=== PATIENT | female | born 1985 | race Caucasian/White ===

== ENCOUNTER 2017-03-12 20:36 | Emergency (ER) | payer BC ==
[2017-03-12 20:57] VITALS: BP 89/52
[2017-03-12] MEDS ORDERED: Sodium Chloride 0.9% 10 ML Syringe FLUSH PRN (21:41)
[2017-03-12] MEDS ORDERED: fentaNYL 100 MCG/2 ML SDV IVPUSH ONE (21:41)
[2017-03-12] MEDS ORDERED: Sodium Chloride 0.9% 1,000 ML IV ONE (21:41)
--- NOTE | 2017-03-12 23:33 | EDM.PDOC ---
ED HPI GENERAL MEDICAL PROBLEM - General Chief Complaint: Fever Stated Complaint: LOW GRADE FEVER,CANCER PT Time Seen by Provider: 03/12/17 21:25 Source of Information: Reports: Patient History Limitations: Reports: No Limitations - History of Present Illness INITIAL COMMENTS - FREE TEXT/NARRATIVE: 31 year old female presents for evaluation and treatment of a low grade fever. Patient has a history of melanoma and is currently receiving chemo. Reports she developed a fevers of 100.2 around 18:00 today. Reports over the last few days she has appreciated nausea, vomiting, decreased appetite, heart palpitations and dizziness. Denies any cough, dysuria, back pain, abdominal pain or diarrhea. Additionally patient reports left hip pain. Reports joint pains associated with her chemo. No erythema to the joint. Able to walk. Additionally , she has family members who have been ill with cold symptoms. She did take a norco 10-325 today for the left hip pain. Patient feels her symptoms may be due to dehydration. Reports she often feels dizzy, and has heart palpitations with dehydration. She was at [place] on Monday for dehydration. She received fluids. Last WBC Monday was 3.0. Patient has been placed in reverse isolation upon arrival to the ER. Patient sees Sabrina Onofre for local care and [facility] for her melanoma. Diagnosed with melanoma about one year ago. She has been receiving treatment for the last year. Patient has a history of frequent UTIs and pyelonephritis. Does not feel like she has either one of these at this time. Treatments NEWSWRITER: Reports: Other (see below) Other Treatments NEWSWRITER: hydrocodone Bilateral Leg Pain Score (Numeric/FACES): 3 - Related Data Allergies Allergy/AdvReac Type Severity Reaction Status Date / Time hydromorphone [From Dilaudid] AdvReac Intermediate Nausea and Verified 09/04/16 17:10 Vomiting Home Meds: Home Meds LORazepam 1 mg PO Q8H PRN 07/25/15 [History] Ascorbic Acid [Vitamin C] 1,000 mg PO TID 08/01/16 [History] Cyanocobalamin (Vitamin B-12) [B-12] 1,000 mcg PO DAILY 08/01/16 [History] Cyclobenzaprine [Flexeril] 10 - 20 mg PO Q4H PRN 08/01/16 [History] DULoxetine [Cymbalta] 90 mg PO DAILY 08/01/16 [History] Hydrocodone/Acetaminophen [[place] 5-325] 1 tab PO Q6H PRN 08/01/16 [History] Magnesium Amino Acid Chelate [Magnesium] 200 mg PO DAILY 08/01/16 [History] Ondansetron [Zofran ODT] 8 mg PO Q6HR PRN 08/01/16 [History] Acetaminophen [Tylenol] 650 mg PO Q4H PRN #0 tablet 08/04/16 [Rx] Ibuprofen [IJD: Ibuprofen] 800 mg PO Q12H PRN #0 tablet 08/04/16 [Rx] Levofloxacin [Levaquin] 500 mg PO Q24H #6 tablet 09/04/16 [Rx] Ondansetron [Zofran ODT] 4 mg PO Q8H PRN #20 tab.dis 09/04/16 [Rx] Past Medical History - Past Health History Medical/Surgical History: Denies Medical/Surgical History Cardiovascular History: Reports: Other (See Below) Other Cardiovascular History: palpitations related to some prior meds Gastrointestinal History: Reports: None Genitourinary History: Reports: Pyelonephritis, Renal Calculus, UTI, Recurrent Other Genitourinary History: current diagnosis of pylonephritis 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 3 c sections Musculoskeletal History: Reports: Other (See Below) Other Musculoskeletal History: left hip pain Psychiatric History: Reports: Depression Oncologic (Cancer) History: Reports: Malignant Melanoma Dermatologic History: Reports: Melanoma Other Dermatologic History: malignant melanoma diagnosis middle of February 2016 - Past Surgical History GI Surgical History: Reports: Cholecystectomy Female Surgical History: Reports: Section, Tubal Ligation Social & Family History - Family History Family Medical History: Noncontributory - Tobacco Use Smoking Status *Q: Former Smoker Years of Tobacco use: 4 Used Tobacco, but Quit: Yes Month Tobacco Last Used: 12 Second Hand Smoke Exposure: Yes - Caffeine Use Caffeine Use: Reports: Coffee Other Caffeine Use: 4/day Caffeine Use Comment: 4 cups per day - Recreational Drug Use Recreational Drug Use: No ED ROS GENERAL - Review of Systems Review Of Systems: See Below Constitutional: Reports: Fever (reports a fever of 100.2), Decreased Appetite HEENT: Denies: Ear Pain, Sinus Problem, Throat Pain Respiratory: Denies: Shortness of Breath, Cough Cardiovascular: Reports: Palpitations. Denies: Chest Pain GI/Abdominal: Reports: Nausea, Vomiting ( and Monday now resolved). Denies: Abdominal Pain, Diarrhea : Denies: Dysuria, Flank Pain Musculoskeletal: Reports: Other (left hip pain). Denies: Back Pain Neurological: Reports: Dizziness ED EXAM, GENERAL - Physical Exam Exam: See Below Exam Limited By: No Limitations General Appearance: Alert, WD/WN, No Apparent Distress, Thin Eye Exam: Bilateral Eye: Normal Inspection Ears: Normal External Exam, Normal Canal, Hearing Grossly Normal, Normal TMs Nose: Normal Inspection Throat/Mouth: Normal Inspection, Normal Lips, Normal Oropharynx, Normal Voice, No Airway Compromise Neck: Normal Inspection Respiratory/Chest: No Respiratory Distress, Lungs Clear, Normal Breath Sounds Cardiovascular: Normal Peripheral Pulses, Regular Rate, Rhythm, No Murmur GI/Abdominal: Normal Bowel Sounds, Soft, Non-Tender Neurological: Alert, Oriented, Normal Cognition Psychiatric: Normal Affect, Normal Mood Skin Exam: Warm, Dry, Normal Color Course - Vital Signs Last Recorded V/S: Last Vital Signs Temp 37.2 C 03/13/17 00:05 Pulse 59 L 03/12/17 20:55 Resp 20 03/12/17 20:55 BP 89/52 L 03/12/17 20:55 Pulse Ox 98 03/12/17 20:55 - Orders/Labs/Meds Labs: Laboratory Tests 03/12/17 03/12/17 03/12/17 Range/Units 23:00 23:00 23:00 WBC 5.21 (3.98-10.04) K/mm3 RBC 4.47 (3.98-5.22) M/mm3 Hgb 12.9 (11.2-15.7) gm/L Hct 39.1 (34.1-44.9) % MCV 87.5 (79.4-94.8) fl MCH 28.9 (25.6-32.2) pg MCHC 33.0 (32.2-35.5) g/dl RDW Std Deviation 40.1 (36.4-46.3) fL Plt Count 171 L (182-369) K/mm3 MPV 11.1 (9.4-12.3) fl Neutrophils % (Manual) 84 H (40-60) % Band Neutrophils % 2 (0-10) % Lymphocytes % (Manual) 7 L (20-40) % Atypical Lymphs % 0 % Monocytes % (Manual) 4 (2-10) % Eosinophils % (Manual) 2 (0.7-5.8) % Basophils % (Manual) 1 (0.1-1.2) Platelet Estimate Adequate Plt Morphology Comment Normal RBC Morph Comment Normal Sodium 143 (136-145) mEq/L Potassium 4.1 (3.5-5.1) mEq/L Chloride 104 (98-107) mEq/L Carbon Dioxide 32 (21-32) mEq/L Anion Gap 11.1 (5-15) BUN 29 H (7-18) mg/dL Creatinine 0.9 (0.55-1.02) mg/dL Est Cr Clr Drug Dosing 68.76 mL/min Estimated GFR (MDRD) > 60 (>60) mL/min BUN/Creatinine Ratio 32.2 H (14-18) Glucose 95 (74-106) mg/dL Calcium 9.5 (8.5-10.1) mg/dL Total Bilirubin 0.4 (0.2-1.0) mg/dL AST 21 (15-37) U/L ALT 32 (14-59) U/L Alkaline Phosphatase 65 (46-116) U/L C-Reactive Protein < 0.2 (<1.0) mg/dL Total Protein 7.9 (6.4-8.2) g/dl Albumin 4.2 (3.4-5.0) g/dl Globulin 3.7 gm/dL Albumin/Globulin Ratio 1.1 (1-2) Urine Color Yellow (Yellow) Urine Appearance Clear (Clear) Urine pH 7.5 (5.0-8.0) Ur Specific [place] 1.020 (1.005-1.030) Urine Protein Negative (Negative) Urine Glucose (UA) Negative (Negative) Urine Ketones Negative (Negative) Urine Occult Blood Negative (Negative) Urine Nitrite Negative (Negative) Urine Bilirubin Negative (Negative) Urine Urobilinogen 0.2 (0.2-1.0) Ur Leukocyte Esterase Negative (Negative) Urine RBC 0-5 (0-5) /hpf Urine WBC 0-5 (0-5) /hpf Ur Epithelial Cells 0-5 (0-5) /hpf Urine Bacteria Few (FEW) /hpf Urine Mucus Not seen (FEW) /hpf Meds: Medications Discontinued Medications Generic Name Dose Route Start Last Admin Trade Name Alaina PRN Reason Stop Dose Admin Fentanyl 50 mcg 03/12/17 21:41 03/12/17 22:55 Sublimaze IVPUSH 03/12/17 21:42 50 mcg ONETIME ONE Administration Sodium Chloride 1,000 mls @ 999 mls/hr 03/12/17 21:41 03/12/17 22:55 Normal Saline IV 03/12/17 22:41 999 mls/hr ONETIME ONE Administration Sodium Chloride 10 ml 03/12/17 21:41 Saline Flush FLUSH ASDIRECTED PRN Keep Vein Open - Re-Assessments/Exams Free Text/Narrative Re-Assessment/Exam: 03/12/17 21:42 Afebrile here in ER at 984 F, HR is 59. Hypotensive at 89/52 but thought to be baseline for her. Plan will be to obtain labs to rule out infection. 03/12/17 23:53 Labs returned. wbc within normal limits at 5.21 with 2% bands, hgb is 12.9 and plts are 171 CRP is within normal limits at <0.2 sodium is 143, potassium is 4.1 and chloride is 104. Anion gap is 11.1. creatinine is 0.9. glucose is 95. UA has no leuks, nitrites, glucose, protein or ketones. She has received fentanyl for the pain and 1 l fluids. Feels improved at this point. Since the patient does not have a cough, she is afebrile and not tachycardic I see no reason for a chest xray or blood cultures. Patient agrees with this. I will discharge her home with close follow-up she is to return immediately if her symptoms change or worsen. Discharge instructions as documented. Departure - Departure Time of Disposition: 23:52 Disposition: Home, Self-Care 01 Condition: Good Clinical Impression: Temperature elevation, Fatigue - Discharge Information Instructions: Fatigue, Fever, Adult, [id number] Referrals: Beatriz Onofre, [employer] LANCE MODEL [Primary Care Provider] - Forms: ED Department Discharge Additional Instructions: make sure you are drinking plenty of fluids. Continue with your current plan of care. Follow up with her family practice provider Monday as planned and your oncologist if needed. Please return to the ER if your symptoms change or worsen.
== END 2017-03-13 00:06 | disposition home or self-care (01) ==
LOC: JD.ED 20:36
DX: R50.9 Fever, unspecified (principal); R53.83 Other fatigue; F32.9 Major depressive disorder, single episode, unspecified; Z88.8 Allergy status to other drugs, medicaments and biological substances; Z79.899 Other long term (current) drug therapy; Z90.49 Acquired absence of other specified parts of digestive tract; Z98.51 Tubal ligation status; Z87.891 Personal history of nicotine dependence
CPT/HCPCS: 36415; 80053; 81001; 85025; 86140; 96361; 96374; 99284; J3010; J7040

== ENCOUNTER 2019-09-14 07:45 | Emergency (ER) | payer BC ==
[2019-09-14 08:04] VITALS: BP 112/65; PULSE 80
[2019-09-14] MEDS ORDERED: Sodium Chloride 0.9% 10 ML Syringe FLUSH PRN (08:19)
[2019-09-14] MEDS ORDERED: Sodium Chloride 0.9% 1,000 ML IV SCH (08:30)
--- NOTE | 2019-09-14 08:32 | EDM.PDOC ---
ED HPI GENERAL MEDICAL PROBLEM - General Chief Complaint: Flank Pain Stated Complaint: FEVER/COUGH AND BODY ACHES,KIDNEY ISSUES Time Seen by Provider: 09/14/19 07:59 Source of Information: Reports: Patient History Limitations: Reports: No Limitations - History of Present Illness INITIAL COMMENTS - FREE TEXT/NARRATIVE: Patient is a 33-year-old female who presents with complaints of fever, chills, body aches, sore throat, headache, shortness of breath and cough that started yesterday. Patient also states that last night she began having right sided flank pain. She has a history of kidney stones and pyelonephritis and states that her flank pain feels similar to either of these diagnoses she has had in the past. The pain to the right flank waxes and wane. She denies any dysuria, frequency, nausea, vomiting, or diarrhea. Patient did not receive a flu vaccination this year. She took 800 mg of ibuprofen around 7:15 this morning and states that it did improve her symptoms. She is afebrile at this time. Patient is currently on her menstrual cycle. Of note, patient does have a history of malignant melanoma in remission. She states that she does have a nodule in one of her lungs that she is supposed to follow-up on. Treatments RARE/ENDANGERED SPECIES SPECIALIST: Reports: Acetaminophen, NSAIDS Right Flank Pain Score (Numeric/FACES): 5 - Related Data Allergies Allergy/AdvReac Type Severity Reaction Status Date / Time silver Allergy Redness Verified 09/14/19 08:05 [From [employer]eg[employer] Mesh] Home Meds: Home Meds LORazepam 1 mg PO Q8H PRN 07/25/15 [History] Ascorbic Acid [Vitamin C] 1,000 mg PO TID 08/01/16 [History] Cyanocobalamin (Vitamin B-12) [B-12] 1,000 mcg PO DAILY 08/01/16 [History] Cyclobenzaprine [Flexeril] 10 - 20 mg PO Q4H PRN 08/01/16 [History] DULoxetine [Cymbalta] 90 mg PO DAILY 08/01/16 [History] Hydrocodone/Acetaminophen [[place] 5-325] 1 tab PO Q6H PRN 08/01/16 [History] Magnesium Amino Acid Chelate [Magnesium] 200 mg PO DAILY 08/01/16 [History] Ondansetron [Zofran ODT] 8 mg PO Q6HR PRN 08/01/16 [History] Acetaminophen [Tylenol] 650 mg PO Q4H PRN #0 tablet 08/04/16 [Rx] Ibuprofen [IJD: Ibuprofen] 800 mg PO Q12H PRN #0 tablet 08/04/16 [Rx] Levofloxacin [Levaquin] 500 mg PO Q24H #6 tablet 09/04/16 [Rx] Ondansetron [Zofran ODT] 4 mg PO Q8H PRN #20 tab.dis 09/04/16 [Rx] Past Medical History - Past Health History Medical/Surgical History: Denies Medical/Surgical History Cardiovascular History: Reports: Other (See Below) Other Cardiovascular History: palpitations related to some prior meds Gastrointestinal History: Reports: None Genitourinary History: Reports: Pyelonephritis, Renal Calculus, UTI, Recurrent Other Genitourinary History: current diagnosis of pylonephritis RUG WEAVER History: Reports: Other (See Below) Other RUG WEAVER History: uterine polyp removed. 3 c sections Musculoskeletal History: Reports: Other (See Below) Other Musculoskeletal History: left hip pain Psychiatric History: Reports: Depression Oncologic (Cancer) History: Reports: Malignant Melanoma Dermatologic History: Reports: Melanoma Other Dermatologic History: malignant melanoma diagnosis middle of February 2016 - Past Surgical History GI Surgical History: Reports: Cholecystectomy Female Surgical History: Reports: Section, Tubal Ligation Social & Family History - Family History Family Medical History: Noncontributory - Tobacco Use Smoking Status *Q: Never Smoker - Caffeine Use Caffeine Use: Reports: Coffee Other Caffeine Use: 4/day Caffeine Use Comment: 4 cups per day - Recreational Drug Use Recreational Drug Use: No ED ROS GENERAL - Review of Systems Review Of Systems: Comprehensive ROS is negative, except as noted in HPI. ED EXAM, GENERAL - Physical Exam Exam: See Below Exam Limited By: No Limitations General Appearance: Alert, WD/WN, No Apparent Distress Throat/Mouth: Normal Inspection, Normal Lips, Normal Teeth, Normal Gums, Normal Oropharynx, Normal Voice, No Airway Compromise Head: Atraumatic, Normocephalic Neck: Normal Inspection, Supple, Non-Tender, Full Range of Motion Respiratory/Chest: No Respiratory Distress, Normal Breath Sounds, No Accessory Muscle Use, Chest Non-Tender, Wheezing (faint expiratory) Cardiovascular: Normal Peripheral Pulses, Regular Rate, Rhythm, No Edema, No Gallop, No JVD, No Murmur, No Rub GI/Abdominal: Normal Bowel Sounds, Soft, Non-Tender, No Organomegaly, No Distention, No Abnormal Bruit, No Mass Back Exam: Normal Inspection, CVA Tenderness (R) Neurological: Alert, Oriented, CN II-XII Intact, Normal Cognition, Normal Gait, Normal Reflexes, No Motor/Sensory Deficits Psychiatric: Normal Affect, Normal Mood Skin Exam: Warm, Dry, Intact, Normal Color, No Rash Course - Vital Signs Last Recorded V/S: Last Vital Signs Temp 98.5 F 09/14/19 07:58 Pulse 80 09/14/19 07:58 Resp 16 09/14/19 07:58 BP 112/65 09/14/19 07:58 Pulse Ox 92 L 09/14/19 07:58 - Orders/Labs/Meds Orders: Active Orders 24 hr Category Date Time Status Peripheral IV Care [RC] . DIRECTED Care 09/14/19 08:20 Active Chest 2V [CR] Stat Exams 09/14/19 08:37 Taken Sodium Chloride 0.9% [Normal Saline] 1,000 ml Med 09/14/19 08:30 Active IV ASDIRECTED Sodium Chloride 0.9% [Saline Flush] Med 09/14/19 08:19 Active 10 ml FLUSH ASDIRECTED PRN Peripheral IV Insertion Adult [OM.PC] Stat Oth 09/14/19 08:19 Ordered Medication Orders Sodium Chloride (Normal Saline) 1,000 mls @ 999 mls/hr IV ASDIRECTED KAUSHAL Last Admin: 09/14/19 08:38 Dose: 150 mls/hr Sodium Chloride (Saline Flush) 10 ml FLUSH ASDIRECTED PRN PRN Reason: Keep Vein Open Last Admin: 09/14/19 08:38 Dose: 10 ml Labs: Laboratory Tests 09/14/19 09/14/19 09/14/19 Range/Units 08:27 08:27 08:27 WBC 5.28 (3.98-10.04) K/mm3 RBC 4.52 (3.98-5.22) M/mm3 Hgb 13.9 (11.2-15.7) gm/dl Hct 41.9 (34.1-44.9) % MCV 92.7 (79.4-94.8) fl MCH 30.8 (25.6-32.2) pg MCHC 33.2 (32.2-35.5) g/dl RDW Std Deviation 40.6 (36.4-46.3) fL Plt Count 160 L D (182-369) K/mm3 MPV 10.8 (9.4-12.3) fl Neut % (Auto) 85.2 H (34.0-71.1) % Lymph % (Auto) 5.1 L (19.3-51.7) % [place] % (Auto) 8.5 (4.7-12.5) % Eos % (Auto) 0.8 (0.7-5.8) Baso % (Auto) 0.2 (0.1-1.2) % Neut # (Auto) 4.50 (1.56-6.13) K/mm3 Lymph # (Auto) 0.27 L (1.18-3.74) K/mm3 [place] # (Auto) 0.45 H (0.24-0.36) K/mm3 Eos # (Auto) 0.04 (0.04-0.36) K/mm3 Baso # (Auto) 0.01 (0.01-0.08) K/mm3 Manual Slide Review Abnormal smear Sodium 138 (136-145) mEq/L Potassium 4.0 (3.5-5.1) mEq/L Chloride 102 (98-107) mEq/L Carbon Dioxide 22 (21-32) mEq/L Anion Gap 18.0 H (5-15) BUN 10 (7-18) mg/dL Creatinine 1.0 (0.55-1.02) mg/dL Est Cr Clr Drug Dosing 69.16 mL/min Estimated GFR (MDRD) > 60 (>60) mL/min BUN/Creatinine Ratio 10.0 L (14-18) Glucose 112 H (74-106) mg/dL Calcium 8.3 L (8.5-10.1) mg/dL Total Bilirubin 0.3 (0.2-1.0) mg/dL AST 18 (15-37) U/L ALT 33 (14-59) U/L Alkaline Phosphatase 65 (46-116) U/L C-Reactive Protein 0.9 (<1.0) mg/dL Total Protein 7.0 (6.4-8.2) g/dl Albumin 3.7 (3.4-5.0) g/dl Globulin 3.3 gm/dL Albumin/Globulin Ratio 1.1 (1-2) Urine Color Yellow (Yellow) Urine Appearance Slt cloudy H (Clear) Urine pH 7.5 (5.0-8.0) Ur Specific [place] 1.025 (1.005-1.030) Urine Protein Negative (Negative) Urine Glucose (UA) Negative (Negative) Urine Ketones Negative (Negative) Urine Occult Blood Trace-intact H (Negative) Urine Nitrite Negative (Negative) Urine Bilirubin Negative (Negative) Urine Urobilinogen 0.2 (0.2-1.0) Ur Leukocyte Esterase Negative (Negative) Urine RBC 5-10 H (0-5) /hpf Urine WBC 0-5 (0-5) /hpf Ur Squamous Epith Cells 0-5 (0-5) /hpf Amorphous Sediment Many H (NOT SEEN) /hpf Urine Bacteria Few (FEW) /hpf Urine Mucus Few (FEW) /hpf Meds: Medications Generic Name Dose Route Start Last Admin Trade Name Freq PRN Reason Stop Dose Admin Sodium Chloride 1,000 mls @ 999 mls/hr 09/14/19 08:30 09/14/19 08:38 Normal Saline IV 150 mls/hr ASDIRECTED KAUSHAL Administration Sodium Chloride 10 ml 09/14/19 08:19 09/14/19 08:38 Saline Flush FLUSH 10 ml ASDIRECTED PRN Administration Keep Vein Open - Re-Assessments/Exams Free Text/Narrative Re-Assessment/Exam: 09/14/19 09:17 Urinalysis was negative for any infection, however was positive for trace occult blood and 5-10 rbc's. Patient did change her tampon and cleaned very well prior to the sample to prevent cross contamination from her menstrual period. She was positive for influenza B. I have ordered a abdomen pelvis CT without contrast to look for kidney stone. 09/14/19 10:36 CT scan did show 2-2.5 mm nonobstructing stones within the mid to upper right kidney, however there are no stones noted within the ureters. CT also showed a low density lesion within the posterior right lobe of the liver measuring 1.4 cm. Does not appear cystic but is most likely benign as there are no additional abnormalities seen within the liver. Patient also has mild increased stool within the colon which is likely the source of her right flank pain. I discussed the CT findings with the patient and, given her history of malignant melanoma, I did recommend that she follow up with her primary care provider to discuss the findings of the CT. She stated that she also has a follow-up appointment scheduled with her oncologist at [facility] [place] in October. I will provide her with a copy of the CT report for her to take with that appointment. I recommended that she call Monday to schedule a follow-up appointment with her primary care provider, Randa Sawyer. Discharge instructions as noted. Departure - Departure Time of Disposition: 10:42 Disposition: Home, Self-Care 01 Condition: Fair Clinical Impression: Influenza B Constipation Qualifiers: Constipation type: unspecified constipation type Qualified Code(s): K59.00 - Constipation, unspecified - Discharge Information *PRESCRIPTION DRUG MONITORING PROGRAM REVIEWED*: No *COPY OF PRESCRIPTION DRUG MONITORING REPORT IN PATIENT REX: No Instructions: Influenza, Adult, [id number], Constipation, Adult, [id number] Referrals: Randa Sawyer PA-C [Primary Care Provider] - Forms: ED Department Discharge Additional Instructions: You were seen in the emergency department today for fever, chills, cough, sore throat, and right flank pain. You were positive for influenza B. Your CT scan was negative for any kidney stones in your ureters. As we discussed, your CT scan did show a 1.4 cm low density lesion in the posterior right lobe of your liver. The radiologist notes that this is most likely benign, however given your history of malignant melanoma, I feel it is necessary for you to follow up on this finding with your primary care provider as well as with your oncologist. You have been provided with a copy of the CT report. I recommend that you call Monday to schedule a follow-up appointment with your primary care provider, Randa Sawyer, to discuss the CT findings. Today, I recommend that you go home and rest. Ensure that you are taking in an adequate amount of fluid. You may take [id number] Tylenol or ibuprofen as needed for any fever or discomfort. I also recommend that you obtain a bottle of magnesium citrate and take it to help relieve the constipation. If you should experience any new or worsening symptoms, please do not hesitate to return to the emergency department. Sepsis Event Note - Evaluation Sepsis Screening Result: No Definite Risk - Focused Exam Vital Signs: Vital Signs Temp Pulse Resp BP Pulse Ox 09/14/19 07:58 98.5 F 80 16 112/65 92 L Date Exam was Performed: 09/14/19 Time Exam was Performed: 10:36 - My Orders Last 24 Hours: My Active Orders 09/14/19 08:19 Sodium Chloride 0.9% [Saline Flush] 10 ml FLUSH ASDIRECTED PRN Peripheral IV Insertion Adult [OM.PC] Stat 09/14/19 08:20 Peripheral IV Care [RC] . DIRECTED 09/14/19 08:30 Sodium Chloride 0.9% [Normal Saline] 1,000 ml IV ASDIRECTED 09/14/19 08:37 Chest 2V [CR] Stat - Assessment/Plan Last 24 Hours: My Active Orders 09/14/19 08:19 Sodium Chloride 0.9% [Saline Flush] 10 ml FLUSH ASDIRECTED PRN Peripheral IV Insertion Adult [OM.PC] Stat 09/14/19 08:20 Peripheral IV Care [RC] . DIRECTED 09/14/19 08:30 Sodium Chloride 0.9% [Normal Saline] 1,000 ml IV ASDIRECTED 09/14/19 08:37 Chest 2V [CR] Stat
--- NOTE | 2019-09-14 10:11 | CT ---
CT abdomen and pelvis Technique: Multiple axial sections were obtained from above the dome of the diaphragm inferiorly through the pubic symphysis. Intravenous and oral contrast not utilized. Study performed as a ureteral stone protocol. Findings: Single nonobstructing stone is noted within the mid to upper right kidney measuring about 2-2.5 mm. No abnormal calcifications seen within the left kidney. No ureteral dilatation is seen. No ureteral calcifications are seen. No bladder calculi are seen. Visualized lung bases show nothing acute. Surgical clips are seen from prior cholecystectomy. Liver shows a low density lesion posteriorly within the right lobe measuring about 1.4 cm. This does not have Hounsfield unit measurements of a simple cyst. No additional abnormality is seen within the liver. Spleen appears within normal limits. Pancreas is within normal limits. Adrenal glands show no nodule. Aorta shows no aneurysm. No retroperitoneal adenopathy or mesenteric abnormalities are seen. Appendix is seen which is normal in size. No pelvic mass or adenopathy is seen. No free fluid or inflammatory change is appreciated. Mild increased stool is noted within the colon. Bone window settings were reviewed which appear within normal limits for the patient's age. Impression: 1. 2-2.5 mm nonobstructing stone within the mid to upper right kidney. 2. No ureteral dilatation or ureteral stone is seen. 3. Low density lesion within the posterior right lobe of the liver measuring 1.4 cm. This does not appear to represent a cyst but is most likely benign given that no additional abnormalities are seen within the liver. 4. Prior cholecystectomy. 5. Mild increased stool within the colon. Diagnostic code #3 This report was dictated in [place] Standard Time
--- NOTE | 2019-09-14 13:27 | CR ---
Chest: 2 views of the chest were obtained. Comparison: Prior chest x-ray of 02/13/19. Heart size and mediastinum are normal. Scoliosis is present within the spine. Lungs are clear. Impression: 1. Mild scoliosis. 2. Nothing acute is appreciated on 2 view chest x-ray. Diagnostic code #2 Study was dictated in [place] Standard Time
== END 2019-09-14 11:08 | disposition home or self-care (01) ==
LOC: JD.ED 07:45
DX: J10.1 Influenza due to other identified influenza virus with other respiratory manifestations (principal); K59.00 Constipation, unspecified; Z90.49 Acquired absence of other specified parts of digestive tract; Z98.51 Tubal ligation status; Z88.8 Allergy status to other drugs, medicaments and biological substances
CPT/HCPCS: 36415; 71046; 74176; 80053; 81001; 85025; 86140; 87804; 96360; 96361; 99285; J7030; 99283

== ENCOUNTER 2021-03-23 06:29 | Day surgery (SDC) | payer BC ==
[~2021-03-23 06:29] MED LIST: Lactated Ringers 1,000 ML IV SCH; Lidocaine 1%/Sod Bicarbonate in NS 8.4% 1 ML Syringe IDERM PRN; Sodium Chloride 0.9% 10 ML Syringe FLUSH PRN
[2021-03-23] MEDS ORDERED: Propofol 200 MG/20 ML SDV ONE ×2 (06:50→07:47)
[2021-03-23] MEDS ORDERED: Lidocaine 1% 4 ML ONE (06:50)
[2021-03-23] MEDS ORDERED: fentaNYL 100 MCG/2 ML SDV ONE (06:51)
[2021-03-23] MEDS ORDERED: Midazolam 1 MG/ML 2 ML SDV ONE (06:51)
--- NOTE | 2021-03-23 07:13 | PCM.PREANE ---
Preanesthetic Assessment - Procedure Proposed Procedure: Screening Colonoscopy - Anesthesia/Transfusion/Family Hx Anesthesia History: Prior Anesthesia Without Reaction Family History of Anesthesia Reaction: No Transfusion History: No Prior Transfusion(s) Intubation History: Unknown - Review of Systems General: No Symptoms Pulmonary: No Symptoms (Former smoker: quit 2004 less than 1ppd times less than 5 years/ ETOH: occasionally) Cardiovascular: No Symptoms Gastrointestinal: No Symptoms (History of sessile serrated adenoma with last colonoscopy 5 yrs ago.), Constipation, Diarrhea Neurological: No Symptoms Other: Reports: None, Depression, Anxiety - Physical Assessment NPO Status Date: 03/23/21 NPO Status Time: 04:00 (drink) Vital Signs: HR: 63 B/P: 100/61 Sat: 97% Resp: 16 Temp: 97.7 Height: 1.68 m Weight: 56.245 kg ASA Class: 2 Mental Status: Alert & Oriented x3 Airway Class: Mallampati = 2 Dentition: Reports: Normal Dentition, Caries Thyro-Mental Finger Breadths: 3 Mouth Opening Finger Breadths: 3 ROM/Head Extension: Full Lungs: Clear to Auscultation, Normal Respiratory Effort Cardiovascular: Regular Rate, Regular Rhythm, No Murmurs - Lab Values: All labs reviewed and noted and within acceptable ranges to proceed with scheduled procedure. - Allergies Allergies/Adverse Reactions: Allergies Allergy/AdvReac Type Severity Reaction Status Date / Time adhesive Allergy Rash Verified 03/22/21 14:43 silver Allergy Redness Verified 03/22/21 14:43 [From Tegaderm AG Mesh] - Anesthesia Plan Pre-Op Medication Ordered: None - Acknowledgements Anesthesia Type Planned: MAC Pt an Appropriate Candidate for the Planned Anesthesia: Yes Alternatives and Risks of Anesthesia Discussed w Pt/Guardian: Yes Pt/Guardian Understands and Agrees with Anesthesia Plan: Yes PreAnesthesia Questionnaire - Past Health History Medical/Surgical History: Denies Medical/Surgical History HEENT History: Reports: None Cardiovascular History: Reports: Other (See Below) Other Cardiovascular History: palpitations related to some prior meds Respiratory History: Reports: Other (See Below) Other Respiratory History: cough Gastrointestinal History: Reports: Colon Polyp Genitourinary History: Reports: Pyelonephritis, Renal Calculus, UTI, Recurrent Other Genitourinary History: current diagnosis of pylonephritis 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 3 c , yeast infection, vaginal discharge Musculoskeletal History: Reports: Other (See Below) Other Musculoskeletal History: left hip pain Neurological History: Reports: None Psychiatric History: Reports: Bipolar, Depression Endocrine/Metabolic History: Reports: Vitamin D Deficiency Hematologic History: Reports: None Immunologic History: Reports: None Oncologic (Cancer) History: Reports: Malignant Melanoma Dermatologic History: Reports: Melanoma Other Dermatologic History: malignant melanoma diagnosis middle February 2016 - Past Surgical History HEENT Surgical History: Reports: None Cardiovascular Surgical History: Reports: None Respiratory Surgical History: Reports: None GI Surgical History: Reports: Cholecystectomy Other GI Surgeries/Procedures: lap Female Surgical History: Reports: Breast Implant, Section, Tubal Ligation Other Female Surgeries/Procedures: breast biopsy,breast augmentation; laproscopy Endocrine Surgical History: Reports: None Neurological Surgical History: Reports: None Musculoskeletal Surgical History: Reports: Other (See Below) Other Musculoskeletal Surgeries/Procedures:: left wrist arthroscopy Other Oncologic Surgeries/Procedures: benign, calcification L side - SUBSTANCE USE Tobacco Use Status *Q: Former Tobacco User Recreational Drug Use History: No - HOME MEDS Home Medications: Home Meds Ascorbic Acid [Vitamin C] 1,000 mg PO TID 08/01/16 [History] Cholecalciferol (Vitamin D3) [Vitamin D3] 5,000 unit PO DAILY 03/22/21 [History] Fish Oil/[place]-3 Fatty Acids [Fish Oil 1,000 MG] 1 gm PO DAILY 03/22/21 [History] Multivitamin 1 tab PO DAILY 03/22/21 [History] Vitamin B Complex [B Complex] 1 tab PO DAILY 03/22/21 [History] - CURRENT (IN HOUSE) MEDS Current Meds: Current Medications Lactated Ringer's (Ringers, Lactated) 1,000 mls @ 125 mls/hr IV ASDIRECTED KAUSHAL Stop: 03/23/21 23:00 Lidocaine/Sodium Bicarbonate (Lidocaine 1%/Sod Bicarbonate In Ns 8.4% 1 Ml Syringe) 0.25 ml IDERM ONETIME PRN PRN Reason: Prior to IV Start Stop: 03/23/21 18:00 Sodium Chloride (Sodium Chloride 0.9% 10 Ml Syringe) 10 ml FLUSH ASDIRECTED PRN PRN Reason: Keep Vein Open Stop: 03/23/21 18:00 Discontinued Medications Fentanyl (Fentanyl 100 Mcg/2 Ml Sdv) Confirm Administered Dose 100 mcg .ROUTE .STK-MED ONE Stop: 03/23/21 06:52 Lidocaine HCl (Xylocaine-Mpf 1%) Confirm Administered Dose 4 mls @ as directed .ROUTE .STK-MED ONE Stop: 03/23/21 06:51 Midazolam HCl (Midazolam 1 Mg/Ml 2 Ml Sdv) Confirm Administered Dose 2 mg .ROUTE .STK-MED ONE Stop: 03/23/21 06:52 Propofol (Propofol 200 Mg/20 Ml Sdv) Confirm Administered Dose 200 mg .ROUTE .STK-MED ONE Stop: 03/23/21 06:51
[2021-03-23] MEDS ORDERED: Ondansetron 4 MG/2 ML SDV IVPUSH PRN (07:38)
[2021-03-23] MEDS ORDERED: ePHEDrine 50 MG/ML SDV ONE (07:39)
[2021-03-23] MEDS ORDERED: Lactated Ringers 500 ML ONE (07:57)
--- NOTE | 2021-03-23 08:11 | PCM.PRNOTE ---
- Free Text/Narrative Note: Date: 03/23/2021 Procedure: screening colonoscopy History: colonoscopy done in 2016 for GI symptoms with small sessile serrated adenoma identified and removed Endoscopist: Michoacano Linton MD Findings: excellent prep. cecum reached. No polyps. Minor hemorrhoidal disease. Detailed Report: The patient was taken to the endoscopy suite and placed in left lateral decubitus position. Timeout was performed and monitored anesthesia care was initiated. Visual inspection of the anus revealed small external hemorrhoidal skin tags. Digital rectal exam was unremarkable. The colonoscope was inserted and advanced all the way to the cecum. The appendiceal orifice and ileocecal junction were well visualized. Prep was excellent. The scope was slowly withdrawn and mucosal surfaces carefully inspected. No polyps were identified. There is no evidence of gross inflammatory change throughout the colon. No diverticular disease. On retroflexion within the rectum, grade 1 internal hemorrhoids were noted. Air was suctioned from the distal colon and rectum prior to withdrawal of the scope. The patient tolerated the procedure well.
--- NOTE | 2021-03-23 08:19 | PCM48HPAN ---
Post Anesthesia Note - EVALUATION WITHIN 48HRS OF ANESTHETIC Vital Signs in Normal Range: Yes Patient Participated in Evaluation: Yes Respiratory Function Stable: Yes Airway Patent: Yes Cardiovascular Function Stable: Yes Hydration Status Stable: Yes Pain Control Satisfactory: Yes Nausea and Vomiting Control Satisfactory: Yes Mental Status Recovered: Yes Vital Signs: Last Vital Signs Temp 98 03/23/21 0810 Pulse 65 03/23/21 0810 Resp 10 03/23/21 0810 BP 101/61 03/23/21 0810 Pulse Ox 99 03/23/21 0810
[2021-03-23 08:57] VITALS: BP 109/72; PULSE 68
== END 2021-03-23 08:45 | disposition home or self-care (01) ==
LOC: JD.SDS 06:29
PROVIDERS: ATTEND Surgery
DX: Z12.11 Encounter for screening for malignant neoplasm of colon (principal); K64.4 Residual hemorrhoidal skin tags; K64.8 Other hemorrhoids; E55.9 Vitamin D deficiency, unspecified; G47.00 Insomnia, unspecified; Z91.048 Other nonmedicinal substance allergy status; Z79.899 Other long term (current) drug therapy; Z86.010 Personal history of colon polyps; Z90.49 Acquired absence of other specified parts of digestive tract; Z98.890 Other specified postprocedural states; Z87.891 Personal history of nicotine dependence
CPT/HCPCS: 45378; J2250; J2704; J3010; J7120; 00812

== ENCOUNTER 2021-07-03 16:13 | Emergency (ER) | payer BC ==
[2021-07-03 16:56] VITALS: BP 124/62; PULSE 61
[2021-07-03] MEDS ORDERED: Ondansetron 4 MG/2 ML SDV IVPUSH ONE (16:58)
[2021-07-03] MEDS ORDERED: Sodium Chloride 0.9% 10 ML Syringe FLUSH PRN (16:58)
[2021-07-03] MEDS ORDERED: Sodium Chloride 0.9% 1,000 ML IV SCH (17:00)
--- NOTE | 2021-07-03 17:11 | EDM.PDOC ---
ED HPI GENERAL MEDICAL PROBLEM - General Chief Complaint: Abdominal Pain Stated Complaint: ABD PAIN Time Seen by Provider: 07/03/21 16:56 Source of Information: Reports: Patient, RN Notes Reviewed History Limitations: Reports: No Limitations - History of Present Illness INITIAL COMMENTS - FREE TEXT/NARRATIVE: Patient is a 35-year-old female who presents to the ER for the evaluation of her right lower quadrant abdominal pain. States that this has been present for the past 2 days however it is worsened over the last 24 hours. States that she had one episode of projectile vomiting yesterday, and also notes that when she eats anything, it goes "straight through her". No associated fevers but she does state that she feels hot and cold at times. No cough no shortness of breath. Patient is denying any chance of . Notes that she has had a few C- sections, and has had her gallbladder taken out. Also has a history of kidney stones but states this feels different on the pain scale. The patient still retains her appendix. She is denying any dysuria, frequency or urgency associated with this. So the patient is denying any sort of obvious fevers or chills, any cough or shortness of breath, she does have some slight nausea 1 episode of vomiting and associated diarrhea Abdominal Pain Score (Numeric/FACES): 7 - Related Data Allergies Allergy/AdvReac Type Severity Reaction Status Date / Time adhesive Allergy Rash Verified 07/03/21 16:57 silver Allergy Redness Verified 07/03/21 16:57 [From Tegaderm AG Mesh] Home Meds: Home Meds Ascorbic Acid [Vitamin C] 1,000 mg PO TID 08/01/16 [History] Cholecalciferol (Vitamin D3) [Vitamin D3] 5,000 unit PO DAILY 03/22/21 [History] Fish Oil/[place]-3 Fatty Acids [Fish Oil 1,000 MG] 1 gm PO DAILY 03/22/21 [History] Multivitamin 1 tab PO DAILY 03/22/21 [History] Vitamin B Complex [B Complex] 1 tab PO DAILY 03/22/21 [History] Acetaminophen/oxyCODONE [Percocet 325-5 MG] 1 each PO Q6H PRN #12 tab 07/03/21 [Rx] ClonazePAM [KlonoPIN] 0.5 mg PO BEDTIME PRN 07/03/21 [History] Methylphenidate HCl [Methylphenidate ER] 20 mg PO BID 07/03/21 [History] Past Medical History Cardiovascular History: Reports: Other (See Below) Other Cardiovascular History: palpitations related to some prior meds Respiratory History: Reports: Other (See Below) Other Respiratory History: cough Gastrointestinal History: Reports: Colon Polyp Genitourinary History: Reports: Pyelonephritis, Renal Calculus, UTI, Recurrent 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 3 c , yeast infection, vaginal discharge Musculoskeletal History: Reports: Other (See Below) Other Musculoskeletal History: left hip pain Psychiatric History: Reports: Bipolar, Depression Endocrine/Metabolic History: Reports: Vitamin D Deficiency Oncologic (Cancer) History: Reports: Malignant Melanoma Dermatologic History: Reports: Melanoma Other Dermatologic History: malignant melanoma diagnosis middle of February 2016 - Past Surgical History GI Surgical History: Reports: Cholecystectomy Other GI Surgeries/Procedures: lap Female Surgical History: Reports: Breast Implant, Section, Tubal Ligation Other Female Surgeries/Procedures: breast biopsy,breast augmentation; laparoscopy Musculoskeletal Surgical History: Reports: Other (See Below) Other Musculoskeletal Surgeries/Procedures:: left wrist arthroscopy Other Oncologic Surgeries/Procedures: benign, calcification L side Social & Family History - Family History Family Medical History: No Pertinent Family History - Tobacco Use Tobacco Use Status *Q: Never Tobacco User Second Hand Smoke Exposure: No - Caffeine Use Caffeine Use: Reports: Coffee, Soda Other Caffeine Use: 4/day Caffeine Use Comment: 4 cups per day - Alcohol Use Days Per Week of Alcohol Use: 3 Number of Drinks Per Day: 1 Total Drinks Per Week: 3 - Recreational Drug Use Recreational Drug Use: No ED ROS GENERAL - Review of Systems Review Of Systems: Comprehensive ROS is negative, except as noted in HPI. ED EXAM, GI/ABD - Physical Exam Exam: See Below Exam Limited By: No Limitations General Appearance: Alert, WD/WN, No Apparent Distress Respiratory/Chest: No Respiratory Distress, Lungs Clear, Normal Breath Sounds, No Accessory Muscle Use, Chest Non-Tender Cardiovascular: Normal Peripheral Pulses, Regular Rate, Rhythm, No Edema GI/Abdominal Exam: Normal Bowel Sounds, Soft, No Distention, No Mass, Tender (RLQ mainly) Extremities: Normal Inspection, Normal Capillary Refill Neurological: Alert, Oriented, Normal Cognition, No Motor/Sensory Deficits Psychiatric: Normal Affect, Normal Mood Skin Exam: Warm, Dry, Intact, Normal Color, No Rash Course - Vital Signs Last Recorded V/S: Last Vital Signs Temp 98.1 F 07/03/21 16:56 Pulse 61 07/03/21 16:56 Resp 18 07/03/21 16:56 BP 124/62 07/03/21 16:56 Pulse Ox 100 07/03/21 16:56 - Orders/Labs/Meds Orders: Active Orders 24 hr Category Date Time Status Peripheral IV Care [RC] . DIRECTED Care 07/03/21 16:58 Ordered Sodium Chloride 0.9% [Normal Saline] 1,000 ml Med 07/03/21 17:00 Ordered IV ASDIRECTED Sodium Chloride 0.9% [Saline Flush] Med 07/03/21 16:58 Ordered 10 ml FLUSH ASDIRECTED PRN Peripheral IV Insertion Adult [OM.PC] Stat Oth 07/03/21 16:58 Ordered Medication Orders Sodium Chloride (Normal Saline) 1,000 mls @ 999 mls/hr IV ASDIRECTED KAUSHAL Last Admin: 07/03/21 17:23 Dose: 999 mls/hr Documented by: NELA Sodium Chloride (Sodium Chloride 0.9% 10 Ml Syringe) 10 ml FLUSH ASDIRECTED PRN PRN Reason: Keep Vein Open Last Admin: 07/03/21 17:23 Dose: 10 ml Documented by: NELA Labs: Laboratory Tests 07/03/21 07/03/21 07/03/21 Range/Units 16:58 17:20 17:24 WBC 7.49 (3.98-10.04) K/mm3 RBC 4.75 (3.98-5.22) M/mm3 Hgb 14.7 (11.2-15.7) gm/dl Hct 43.6 (34.1-44.9) % MCV 91.8 (79.4-94.8) fl MCH 30.9 (25.6-32.2) pg MCHC 33.7 (32.2-35.5) g/dl RDW Std Deviation 39.8 (36.4-46.3) fL Plt Count 247 (182-369) K/mm3 MPV 10.3 (9.4-12.3) fl Neut % (Auto) 72.5 H (34.0-71.1) % Lymph % (Auto) 19.6 (19.3-51.7) % [place] % (Auto) 6.1 (4.7-12.5) % Eos % (Auto) 1.3 (0.7-5.8) Baso % (Auto) 0.4 (0.1-1.2) % Neut # (Auto) 5.42 (1.56-6.13) K/mm3 Lymph # (Auto) 1.47 (1.18-3.74) K/mm3 [place] # (Auto) 0.46 H (0.24-0.36) K/mm3 Eos # (Auto) 0.10 (0.04-0.36) K/mm3 Baso # (Auto) 0.03 (0.01-0.08) K/mm3 Sodium 141 (136-145) mEq/L Potassium 4.2 (3.5-5.1) mEq/L Chloride 104 (98-107) mEq/L Carbon Dioxide 26 (21-32) mEq/L Anion Gap 15.2 H (5-15) BUN 19 H (7-18) mg/dL Creatinine 0.9 (0.55-1.02) mg/dL Est Cr Clr Drug Dosing 79.67 mL/min Estimated GFR (MDRD) > 60 (>60) mL/min BUN/Creatinine Ratio 21.1 H (14-18) Glucose 88 (70-99) mg/dL Calcium 9.1 (8.5-10.1) mg/dL Total Bilirubin 0.4 (0.2-1.0) mg/dL AST 17 (15-37) U/L ALT 21 (14-59) U/L Alkaline Phosphatase 64 (46-116) U/L C-Reactive Protein <0.2 (<1.0) mg/dL Total Protein 7.3 (6.4-8.2) g/dl Albumin 4.1 (3.4-5.0) g/dl Globulin 3.2 gm/dL Albumin/Globulin Ratio 1.3 (1-2) Lipase 139 (73-393) U/L Urine Color Yellow (Yellow) Urine Appearance Clear (Clear) Urine pH 6.0 (5.0-8.0) Ur Specific [place] 1.020 (1.005-1.030) Urine Protein Negative (Negative) Urine Glucose (UA) Negative (Negative) Urine Ketones Trace H (Negative) Urine Occult Blood 1+ H (Negative) Urine Nitrite Negative (Negative) Urine Bilirubin Negative (Negative) Urine Urobilinogen 0.2 (0.2-1.0) Ur Leukocyte Esterase Negative (Negative) Urine RBC 10-20 H (0-5) /hpf Urine WBC 0-5 (0-5) /hpf Ur Epithelial Cells 10-20 H (0-5) /hpf Urine Bacteria Moderate H (FEW) /hpf Urine Mucus Not seen (FEW) /hpf Urine HCG, Qual (NEGATIVE) Influenza Type A RNA (NEGATIVE) Influenza Type B RNA (NEGATIVE) SARS-CoV-2 RNA ([place]ILMAN) (NEGATIVE) 07/03/21 07/03/21 Range/Units 17:24 17:24 WBC (3.98-10.04) K/mm3 RBC (3.98-5.22) M/mm3 Hgb (11.2-15.7) gm/dl Hct (34.1-44.9) % MCV (79.4-94.8) fl MCH (25.6-32.2) pg MCHC (32.2-35.5) g/dl RDW Std Deviation (36.4-46.3) fL Plt Count (182-369) K/mm3 MPV (9.4-12.3) fl Neut % (Auto) (34.0-71.1) % Lymph % (Auto) (19.3-51.7) % [place] % (Auto) (4.7-12.5) % Eos % (Auto) (0.7-5.8) Baso % (Auto) (0.1-1.2) % Neut # (Auto) (1.56-6.13) K/mm3 Lymph # (Auto) (1.18-3.74) K/mm3 [place] # (Auto) (0.24-0.36) K/mm3 Eos # (Auto) (0.04-0.36) K/mm3 Baso # (Auto) (0.01-0.08) K/mm3 Sodium (136-145) mEq/L Potassium (3.5-5.1) mEq/L Chloride (98-107) mEq/L Carbon Dioxide (21-32) mEq/L Anion Gap (5-15) BUN (7-18) mg/dL Creatinine (0.55-1.02) mg/dL Est Cr Clr Drug Dosing mL/min Estimated GFR (MDRD) (>60) mL/min BUN/Creatinine Ratio (14-18) Glucose (70-99) mg/dL Calcium (8.5-10.1) mg/dL Total Bilirubin (0.2-1.0) mg/dL AST (15-37) U/L ALT (14-59) U/L Alkaline Phosphatase (46-116) U/L C-Reactive Protein (<1.0) mg/dL Total Protein (6.4-8.2) g/dl Albumin (3.4-5.0) g/dl Globulin gm/dL Albumin/Globulin Ratio (1-2) Lipase (73-393) U/L Urine Color (Yellow) Urine Appearance (Clear) Urine pH (5.0-8.0) Ur Specific [place] (1.005-1.030) Urine Protein (Negative) Urine Glucose (UA) (Negative) Urine Ketones (Negative) Urine Occult Blood (Negative) Urine Nitrite (Negative) Urine Bilirubin (Negative) Urine Urobilinogen (0.2-1.0) Ur Leukocyte Esterase (Negative) Urine RBC (0-5) /hpf Urine WBC (0-5) /hpf Ur Epithelial Cells (0-5) /hpf Urine Bacteria (FEW) /hpf Urine Mucus (FEW) /hpf Urine HCG, Qual Negative (NEGATIVE) Influenza Type A RNA Negative (NEGATIVE) Influenza Type B RNA Negative (NEGATIVE) SARS-CoV-2 RNA ([place]) Negative (NEGATIVE) Meds: Medications Generic Name Dose Route Start Last Admin Trade Name Freq PRN Reason Stop Dose Admin Sodium Chloride 1,000 mls @ 999 mls/hr 07/03/21 17:00 07/03/21 17:23 Normal Saline IV 999 mls/hr ASDIRECTED KAUSHAL Administration Sodium Chloride 10 ml 07/03/21 16:58 07/03/21 17:23 Sodium Chloride 0.9% 10 Ml Syringe FLUSH 10 ml ASDIRECTED PRN Administration Keep Vein Open Discontinued Medications Generic Name Dose Route Start Last Admin Trade Name Freq PRN Reason Stop Dose Admin Fentanyl 50 mcg 07/03/21 18:04 07/03/21 18:27 Fentanyl 100 Mcg/2 Ml Sdv IVPUSH 07/03/21 18:05 50 mcg ONETIME ONE Administration Hydromorphone HCl 1 mg 07/03/21 17:14 07/03/21 17:31 Hydromorphone 1 Mg/Ml Syringe IVPUSH 07/03/21 17:15 1 mg ONETIME ONE Administration Ondansetron HCl 4 mg 07/03/21 16:58 07/03/21 17:23 Ondansetron 4 Mg/2 Ml Sdv IVPUSH 07/03/21 16:59 4 mg ONETIME ONE Administration - Re-Assessments/Exams Free Text/Narrative Re-Assessment/Exam: 07/03/21 17:14 Patient presents to the ER for her right lower quadrant abdominal pain, we will go ahead and do a Covid swab, get some basic labs, get an IV established along with a CT for ongoing management. 07/03/21 19:19 White count is not elevated, CMP unremarkable, urinalysis demonstrates occult blood plus 10-20 RBCs per high-power field, leukocyte Estrace negative, nitrite negative, no white blood cells in the urine, there were 10-20 epithelial cells which is suggestive of contamination and moderate bacteria appreciated. We will send urine for culture and treat the patient for kidney stones at this time as the CT demonstrated no sign of any acute appendicitis. There was a lung nodule visualized with the patient states she has had this in prior scans and is not worried about this but will follow up with her primary care provider. There were nonobstructing renal calculi within the right kidney, again due to the CT being with contrast and having blood in her urine, it is likely that 1 could have been obscured by the contrast. Departure - Departure Time of Disposition: 19:21 Disposition: Home, Self-Care 01 Condition: Good Clinical Impression: Right flank pain - Discharge Information *PRESCRIPTION DRUG MONITORING PROGRAM REVIEWED*: Yes *COPY OF PRESCRIPTION DRUG MONITORING REPORT IN PATIENT REX: No Instructions: Kidney Stones, [id number] Referrals: Randa Sawyer PA-C [Primary Care Provider] - Forms: ED Department Discharge Additional Instructions: You were evaluated in the ER today for your right flank pain. Your urinalysis did demonstrate some blood in urine, which is suggestive of a kidney stone at this time. A CT was done at this ER visit, this demonstrated some kidney stones within your right kidney but no obvious sign of any ureteral stones. The rest of your CT demonstrated no signs of appendicitis or other acute abnormalities. Try to increase your oral fluid intake for ongoing management You have been given a few tablets of pain medication, please take as prescribed. These medications are highly addictive, please take as few as you need to. These medications also may cause constipation, please take a stool softener like MiraLAX while taking these medications. This medication was electronically sent to the [place] pharmacy located in the [facility] grocery store. If your pain is not much better in a week's time, you may need to follow up with your primary care physician. Please return to the ED if your symptoms change or worsen. Sepsis Event Note (ED) - Focused Exam Vital Signs: Vital Signs Temp Pulse Resp BP Pulse Ox 07/03/21 16:56 98.1 F 61 18 124/62 100 - My Orders Last 24 Hours: My Active Orders 07/03/21 16:58 Peripheral IV Care [RC] . DIRECTED Sodium Chloride 0.9% [Saline Flush] 10 ml FLUSH ASDIRECTED PRN Peripheral IV Insertion Adult [OM.PC] Stat 07/03/21 17:00 Sodium Chloride 0.9% [Normal Saline] 1,000 ml IV ASDIRECTED - Assessment/Plan Last 24 Hours: My Active Orders 07/03/21 16:58 Peripheral IV Care [RC] . DIRECTED Sodium Chloride 0.9% [Saline Flush] 10 ml FLUSH ASDIRECTED PRN Peripheral IV Insertion Adult [OM.PC] Stat 07/03/21 17:00 Sodium Chloride 0.9% [Normal Saline] 1,000 ml IV ASDIRECTED
[2021-07-03] MEDS ORDERED: HYDROmorphone 1 MG/ML Syringe IVPUSH ONE (17:14)
[2021-07-03] MEDS ORDERED: fentaNYL 100 MCG/2 ML SDV IVPUSH ONE (18:04)
[2021-07-03 18:21] LABS: CORONAVIRUS COVID-19 NAA NEGATIVE (NEGATIVE)
--- NOTE | 2021-07-03 19:08 | CT ---
CT abdomen and pelvis Technique: Multiple axial sections were obtained from above the dome of the diaphragm inferiorly through the pubic symphysis. Intravenous contrast and oral contrast was utilized. Delayed images were also obtained from the mid kidneys inferiorly through the bladder. Reconstructed coronal and sagittal images were obtained. Comparison: Prior CT abdomen and pelvis study of 08/01/16 and 09/14/19. Findings: Visualized lung bases show a small nodule within the left base which measures about 4 mm. This is believed not to be seen on prior study due to differences in section. Liver shows a low density lesion within the posterior right lobe measuring 1.3 cm. This is noted on prior 2020 exam and does not appear to represent a simple cyst but possibly due to a hemangioma. Spleen size is normal. Adrenal glands show no nodule. Pancreas shows no discrete abnormality. Kidneys show symmetric contrast enhancement. Several small areas of scarring are seen within the right kidney. Right kidney also shows several scattered calcifications compatible with nonobstructing renal calculi. Abdominal aorta shows no aneurysm. No retroperitoneal adenopathy or mesenteric abnormalities are seen. Appendix is seen and is felt to be normal. No pelvic mass or adenopathy is seen. IUD is present within the uterus. No free fluid or inflammatory change is seen. Delayed images show contrast within the distal ureters and within the bladder. Bone window settings were reviewed which appear within normal limits for the patient's age. Impression: 1. Prior cholecystectomy and IUD. 2. Small nodule within the left lung base not seen on prior exams most likely representing differences in sectioning. This measures 4 mm. This can be ignored if patient is not a smoker. If patient is a smoker, recommend repeat chest CT study in one year. 3. Low density nodule within the posterior right lobe of the liver measuring 1.3 cm. This finding is most likely due to a hemangioma which is similar to prior 2020 exam. 4. Incidental nonobstructing renal calculi within the right kidney. No other acute finding is appreciated. Diagnostic code #3
== END 2021-07-03 19:37 | disposition home or self-care (01) ==
LOC: JD.ED 16:13
DX: R10.31 Right lower quadrant pain (principal); Z91.048 Other nonmedicinal substance allergy status; Z20.822 Contact with and (suspected) exposure to COVID-19
CPT/HCPCS: 0240U; 36415; 74177; 80053; 81001; 81025; 83690; 85025; 86140; 96374; 96375; 99284; J1170; J2405; J3010; J7030

== ENCOUNTER 2023-08-04 19:09 | Emergency (ER) | payer BC ==
[2023-08-04] MEDS ORDERED: Ketorolac 60 MG/2 ML SDV IM ONE (20:28)
[2023-08-04 21:22] VITALS: BP 113/82; PULSE 93
== END 2023-08-04 20:58 | disposition home or self-care (01) ==
LOC: JD.ED 19:09
DX: M25.512 Pain in left shoulder (principal); Z79.899 Other long term (current) drug therapy; Z91.048 Other nonmedicinal substance allergy status
CPT/HCPCS: 96372; 99283; J1885